=== PATIENT | male | born 1940 | race Caucasian/White ===

== ENCOUNTER → 2018-03-25 | Outpatient (CLI) | payer MEDICARE, BC ==
--- NOTE | 2018-03-25 12:26 | XR ---
EXAMINATION TYPE: PA chest and left rib series (6 views) DATE OF EXAM: 03/25/2018 COMPARISON: 03/13/2015 HISTORY: 78-year-old male for dyspnea, pain in left lower ribs after fall 2 days ago FINDINGS: Heart normal size. Aorta and pulmonary vasculature within normal limits. Strandy atelectasis left gre ater than right lower lungs. No consolidation, pneumothorax, or pleural effusion. There are minimally displaced fractures of the left lateral, anterolateral eighth and ninth ribs. IMPRESSION: Minimally displaced fractures of the lateral, anterolateral left eighth and ninth ribs. Strandy atele ctasis at the lung bases otherwise without acute cardiopulmonary process.
== END | disposition home or self-care (01) ==
LOC: RADXRYALE 11:57
PROVIDERS: ATTEND Nurse Practitioner Family
DX: S22.42XA Multiple fractures of ribs, left side, initial encounter for closed fracture (principal); J98.11 Atelectasis

== ENCOUNTER → 2019-04-08 | Day surgery (SDC) | payer MEDICARE, BC ==
[2019-04-07 08:56] VITALS: BMI 30.1
[~2019-04-08] MED LIST: LACTATED RINGERS 1,000 ML IV SCH; LIDOCAINE 1% 20 ML VIAL (10MG/ML) FOR IV START INTRADERMA PRN; PROPOFOL 10 MG/ML 20 ML VIAL IV ONE
[2019-04-08 13:50] VITALS: TEMP 97.9
--- NOTE | 2019-04-08 14:17 | P.PCN ---
Date of Procedure: 04/08/19 Procedure(s) Performed: Procedure: Total colonoscopy. Preoperative diagnosis: Screening for neoplasia. Postoperative diagnosis: Sigmoid diverticulosis but no evidence of acute diverticulitis strictures polyps or cancer. Preparation: HalfLytely prep. Sedation: Was provided by anesthesia. Brief clinical history: The patient is a 79-year-old male who is scheduled for this evaluation for screening for neoplasia age being his risk factor. His last evaluation was around 10 years ago. He has no bowel complaints of bleeding or anemia. Procedure: With the patient on his left lateral decubitus position and after informed consent, the perianal area was inspected and it did not show any fissures or fistulas. There were no masses felt on digital rectal examination. The Olympus CFH 190L video colonoscope was then inserted in the rectum in the usual fashion and advanced to the cecum. There were several diverticular orifices seen scattered in the sigmoid but I saw no evidence of acute diverticulitis, strictures, polyps or tumors. I retroflexed the endoscope in the rectum then the endoscope was withdrawn. The patient tolerated the procedure well. Plan: The patient was reassured. Discussed dietary measures. He will F/U with you as planned.
[2019-04-08 14:38] VITALS: BP 177/90; PULSE 59; RESP 16
== END | disposition home or self-care (01) ==
LOC: ORWHC2ENDO 12:42
DX: Z12.11 Encounter for screening for malignant neoplasm of colon (principal); K57.30 Diverticulosis of large intestine without perforation or abscess without bleeding; I10 Essential (primary) hypertension; E78.5 Hyperlipidemia, unspecified; Z87.891 Personal history of nicotine dependence; E07.9 Disorder of thyroid, unspecified; Z79.890 Hormone replacement therapy; Z79.899 Other long term (current) drug therapy; M10.9 Gout, unspecified; I25.2 Old myocardial infarction; I25.10 Atherosclerotic heart disease of native coronary artery without angina pectoris
CPT/HCPCS: J2704; G0121; 45378

== ENCOUNTER → 2020-12-19 | Outpatient (CLI) | payer MEDICARE ==
[2020-12-19 14:01] LABS: Appearance,Urine Clear (Clear); Bilirubin,Urine Negative (Negative); Blood,Urine Negative (Negative); Color,Urine Yellow; Glucose,Urine (UA) Negative (Negative); Ketones,Urine Negative (Negative); Leukocyte Esterase,Urine Negative (Negative); Nitrite,Urine Negative (Negative); PH, Urine 5.5 (5.0-8.0); Protein,Urine Negative (Negative); Specific Gravity,Urine 1.017 (1.001-1.035)
[2020-12-19 14:07] LABS: HCT 40.2 % (39.0-53.0); HGB 14.3 gm/dL (13.0-17.5); MCH 32.7 pg (25.0-35.0); MCHC 35.5 g/dL (31.0-37.0); MCV 92.3 fL (80.0-100.0); Mean Platelet Volume 9.3; Platelet Count 202 k/uL (150-450); RBC 4.36 m/uL (4.30-5.90); RDW 13.1 % (11.5-15.5); WBC 7.3 k/uL (3.8-10.6)
[2020-12-19 14:09] LABS: Albumin 4.6 g/dL (3.5-5.0); Calcium 9.3 mg/dL (8.4-10.2); Potassium 4.9 mmol/L (3.5-5.1); Total Bilirubin 1.5 mg/dL (0.2-1.3); Total Protein 7.6 g/dL (6.3-8.2)
[2020-12-19 14:10] LABS: INR 0.9 (<1.2); Partial Thromboplastin Time 22.9 sec (22.0-30.0); Prothrombin Time 9.8 sec (9.0-12.0)
== END | disposition home or self-care (01) ==
LOC: LABPAT 12:35
PROVIDERS: ATTEND Orthopaedic Surgery Sports Medicine
DX: Z01.818 Encounter for other preprocedural examination (principal); Z01.812 Encounter for preprocedural laboratory examination; M17.12 Unilateral primary osteoarthritis, left knee
CPT/HCPCS: 36415; 80053; 81003; 85027; 85610; 85730; 87070

== ENCOUNTER 2021-01-04 07:46 | Inpatient (IN) | payer MEDICARE ==
[2020-12-29 14:41] VITALS: BMI 30.1
[~2021-01-04 07:46] MED LIST changes: +ACETAMINOPHEN TAB 500 MG TAB PO PRN; +GABAPENTIN 300 MG CAP PO PRN; +HYDROmorphone 0.5 MG/0.5 ML SYRINGE IVP PRN; +LIDOCAINE 1% (10MG/ML) FOR IV START INTRADERMA PRN; -LIDOCAINE 1% 20 ML VIAL (10MG/ML) FOR IV START INTRADERMA PRN; +MELOXICAM 7.5 MG TAB PO PRN; +ONDANSETRON 4 MG/2 ML VIAL IVP PRN; -PROPOFOL 10 MG/ML 20 ML VIAL IV ONE; +ROPIVACAINE 246.25 MG, EPINEPHrine 0.5 MG, KETOROLAC 30 MG, cloNIDine HCL/PF 80 MCG, WA... MISCELLANE PRN; +TRANEXAMIC ACID 1,000 MG in SODIUM CHLORIDE 0.9% 100 ML IVPB PRN
[2021-01-04 08:40] LABS: Glucose,Whole Blood 106 mg/dL (75-99)
[2021-01-04] MEDS ORDERED: DEXAMETHASONE SOD PHOSPHATE 4 MG/ML 1 ML VIAL IVP ONE (08:41)
[2021-01-04] MEDS ORDERED: MIDAZOLAM 2 MG/2 ML VIAL IVP ONE (08:57)
[2021-01-04] MEDS ORDERED: fentaNYL (PF) 50 MCG/ML 2 ML AMP IVP ONE (08:57)
[2021-01-04] MEDS ORDERED: HYDROmorphone 0.5 MG/0.5 ML SYRINGE IVP PRN ×2 (09:36)
[2021-01-04] MEDS ORDERED: NALOXONE 0.4 MG/ML 1 ML VIAL IV PRN (09:36)
[2021-01-04] MEDS ORDERED: ONDANSETRON 4 MG/2 ML VIAL IVP PRN (09:36)
[2021-01-04] MEDS ORDERED: bisacodyL 10 MG SUPP RECTAL PRN (09:36)
[2021-01-04] MEDS ORDERED: TEMAZEPAM 15 MG CAP PO PRN (09:36)
[2021-01-04] MEDS ORDERED: NA PHOS,M-B/NA PHOS,DI-BA 133 ML ENEMA RECTAL PRN (09:36)
[2021-01-04] MEDS ORDERED: diazePAM 5 MG TAB PO PRN (09:36)
[2021-01-04] MEDS ORDERED: ACETAMINOPHEN TAB 325 MG TAB PO PRN (09:36)
[2021-01-04] MEDS ORDERED: traMADol 50 MG TAB PO PRN (09:36)
[2021-01-04] MEDS ORDERED: HYDROmorphone 0.2 MG/1 ML SYRINGE IVP PRN (09:36)
[2021-01-04] MEDS ORDERED: MAGNESIUM HYDROXIDE 2,400 MG/10 ML CUP PO PRN (09:36)
[2021-01-04] MEDS ORDERED: PROPOFOL 10 MG/ML 20 ML VIAL IV ONE (09:39)
[2021-01-04] MEDS ORDERED: TRANEXAMIC ACID 1,000 MG/10 ML VIAL ONE (09:39)
[2021-01-04] MEDS ORDERED: fentaNYL (PF) 50 MCG/ML 2 ML AMP ONE (09:39)
[2021-01-04] MEDS ORDERED: MIDAZOLAM 2 MG/2 ML VIAL ONE (09:39)
[2021-01-04] MEDS ORDERED: SODIUM CHLORIDE 0.9% 100 ML BAG ONE (09:39)
[2021-01-04] MEDS ORDERED: HYDROcodone/APAP 7.5-325MG 1 EACH TAB PO PRN (09:41)
[2021-01-04] MEDS ORDERED: ceFAZolin 3,000 MG in SODIUM CHLORIDE 0.9% IRRIGATIO 3,000 ML IRRIGATION ONE (10:16)
[2021-01-04] MEDS ORDERED: ROPIVACAINE 0.2%-NS ON-Q PUMP 1,090 MG, EMPTY PAIN BALL 1 EACH MISCELLANE PRN (10:43)
--- NOTE | 2021-01-04 10:45 | P.ANPRN ---
Procedure Note - Anesthesia - Nerve Block Performed Left Adductor Canal Time Out Performed: Yes (08:57) Date of Procedure: 01/04/21 Procedure Start Time: Procedure Stop Time: :12 Location of Patient: PreOp Indication: Acute Post-Operative Pain, Requested by Surgeon (Dr Briscoe) Sedation Type: Sedate with meaningful contact maintained Preparation: Sterile Prep Position: Supine Catheter: Indwelling Needle Types: Pajunk Needle Gauge: 21 Ultrasound used to visualize needle placement: Yes Ultrasound used to observe medication spread: Yes Injectate: 0.5% Ropivacaine (see comment for volume) (20cc) Blood Aspirated: No Pain Paresthesia on Injection Noted: No Resistance on Injection: Normal Image Stored and Saved: Yes Events: Uneventful and Well Tolerated
--- NOTE | 2021-01-04 12:24 | XR ---
EXAMINATION TYPE: XR knee limited LT DATE OF EXAM: 01/04/2021 COMPARISON: NONE TECHNIQUE: Two views submitted HISTORY: Post op FINDINGS: There is a prosthetic knee in near anatomic alignment. There is soft tissue edema and emphysema. IMPRESSION: 1. Postoperative change. Appears in near-anatomic alignment
[2021-01-04 12:35] LABS: Glucose,Whole Blood 127 mg/dL (75-99)
[2021-01-04] MEDS: LACTATED RINGERS 1,000 ML IV SCH ×2 (13:19→20:52)
--- NOTE | 2021-01-04 17:44 | OP ---
OPERATIVE REPORT DATE OF PROCEDURE: 01/04/2021 SURGEON: Dk Briscoe MD CLERICAL METHODS ANALYST: Jayy Macias PA-C PREOPERATIVE DIAGNOSIS: Left knee osteoarthrosis. POSTOPERATIVE DIAGNOSIS: Left knee osteoarthrosis. OPERATION: Left total knee arthroplasty. ANESTHESIA: Spinal with sedation. ESTIMATED BLOOD LOSS: 100 mL. TOURNIQUET TIME: Tourniquet time was 54 minutes at 250 mmHg. COMPLICATIONS: None apparent. DRAINS: None. DISPOSITION: Post-Anesthesia Care Unit. INDICATIONS: Tejinder is a 80-year-old male with a longstanding history of left knee pain. History and physical examination are consistent with advanced left knee osteoarthrosis. He has been through significant nonoperative management up to this point. Further treatment options were discussed and he has decided to go forward with left total knee arthroplasty. The risks of the procedure were discussed with him in detail. These risks include but are not limited to risk of infection, nerve damage, bleeding, pain, and a small risk of deep vein thrombosis which could lead to fatal pulmonary embolism. There is also a risk of loosening of the implant which could require revision operation. The patient understands these risks. All of his questions were answered to his satisfaction. Appropriate informed consent was obtained. DESCRIPTION OF THE PROCEDURE: The patient was identified in the preoperative holding area. Surgical site was marked by both the patient and myself. He was given 2 grams of Ancef IV for prophylactic purposes. He was then transported to the operative suite, where he was placed supine on the operating room table. Spinal anesthetic was then administered and dosed per the anesthesia department without apparent complication. Examination under anesthesia was then performed. The patient was 5 to 7 degrees shy of full extension. He had 95 degrees of flexion, and the medial collateral ligament, lateral collateral ligament and posterior cruciate ligaments were stable. Tourniquet was then placed high on the left upper thigh, well padded in preparation for surgery. The patient's left lower extremity was then prepped and draped in the usual sterile fashion. Standard surgical pause was undertaken to ensure that we were operating on the correct site and that appropriate preoperative antibiotics had been given. All staff in the room were in agreement and we proceeded. The outlines of the patella were marked with a surgical pen. A planned 12 cm vertical incision centered over the patella was marked with a surgical pen. The leg was then exsanguinated with an Esmarch dressing. The knee was then flexed and the tourniquet was inflated to 250 mmHg. The total tourniquet time for the procedure was 54 minutes. Incision was then made with a 10-blade scalpel. Dissection was carried down sharply to the overlying fascia. Great care was taken to minimize the skin flaps. The knee was then exposed using a standard medial parapatellar approach. A small cuff of quadriceps tendon was then left for suturing. He was in quite a bit of varus preoperatively. A standard medial release was then made. The superficial medial collateral ligament was dissected off of the bone around to the posterior aspect of the proximal tibia. The medial meniscus was then excised as well. The lateral meniscus was also released anteriorly. The leg was then externally rotated. The patella was everted. The knee was flexed. Retractors were then placed to protect the collateral ligaments. I then proceeded to remove the infrapatellar fat pad. This was excised sharply tangentially with the fibers of the patellar tendon. I then proceeded to remove the peripheral osteophytes. This was done with a rongeur. I then proceeded with distal femoral resection. He did have a flexion contracture. A planned 11 mm resection was then done. The femoral canal was then entered in the midline of the femur approximately 10 mm anterior to the origin of the posterior cruciate ligament. The uriah was then advanced down the center of the femur and placed intramedullary. Based on the preoperative radiographs, the angle between the anatomic and mechanical axis of the femur was approximately 4 to 5 degrees. The valgus angle of the distal femoral cutting guide was then set at 4 degrees for the left knee. The distal femoral cutting guide was then advanced over the intramedullary uriah. This was seated firmly against the femur. I then, as mentioned, planned to take 11 mm off the distal femur. The cutting block was then secured onto the femur with pins. The jig was then removed and the distal femoral cut was made through the slot of the block. The pins were then removed. The distal femoral cutting block was removed. The accuracy of the distal femoral cuts was checked with 2 flat bars. I then proceeded with femoral sizing. Posterior referencing sizing guide was held firmly against the resected distal surface of the femur. The posterior condyles were resting on the posterior plane of the guide. The sizing guide was then placed on the anterior femur. The size was measured as a size 10. I then assessed for femoral rotation. The plan was for 3 degrees of external rotation. Three degrees of external rotation was placed onto the jig. These holes were then marked. I then confirmed the rotation by 3 separate methods. This was done using epicondylar axis as well as Whitesides line and posterior referencing. It was deemed that the external rotation was proper. I then went forward with placing the femoral cutting block. This was placed over the previously placed pin holes. The Weston wing was then placed onto the anterior slots to ensure that we would not notch the anterior femur with the anterior femoral cut. I then proceeded with the anterior femoral cut. This was flush with the anterior cortex of the femur. The posterior cuts were then made followed by the anterior chamfer cut and then the posterior chamfer cut. The cutting block was then removed. Throughout the resection, the collateral ligaments were protected with retractors. I then placed a trial size 10 femur. It fit very nicely medial to lateral and fit flush with the distal end of the femur. The drill holes were then made. I then proceeded with the tibial cut. I planned for a cruciate-retaining knee. The guide was placed and set for varus, valgus and for slope. The height was set for an approximate 2 mm resection from the medial tibial plateau, which was the lower side. I was happy with the alignment and the amount of resection. The cutting block was then pinned to the proximal tibia. The alignment uriah was removed and proximal tibia was resected with a reciprocating saw. Again this was done with retractors protecting the collateral ligaments as well as the posterior cruciate ligament. I then proceeded to evaluate the flexion and extension gaps. A 10 mm block was then placed. The flexion and extension gaps were equal. I then proceeded with resection of the posterior osteophytes. He had fairly extensive posterior osteophytes. This was done using a curved osteotome. This resected the posterior osteophytes, and posterior capsule stripping was done off the posterior aspect of the femur at this time. The osteophytes were then removed. I then proceeded with resection of the patella. The thickness of the patella was measured using the caliper. The thickness was 26 mm. The thickness of the anticipated patellar dome was taken into account. Resection was then performed and confirmed to be equal in 4 quadrants using a caliper. Approximately 14 mm of bone remained after resection. A 35 x 9 standard patellar trial was then placed. The holes were drilled and the trial was then placed. I then proceeded with sizing the tibial plate. A size G tibial plate fit very nicely. I then placed the trial femur, the tibial tray and the patellar button. A 10 mm trial tibial insert was also placed. The components fit very nicely. He had full extension and flexion. The extension and flexion gaps were equal and stable to both varus and valgus stress. The patella tracked appropriately. Tibial tray rotation was then marked with a Bovie. This was externally rotated properly. I then proceeded with tibial preparation. I first drilled the femoral holes and removed the femoral component. The tibial tray was then set for proper external rotation as well as mediolateral placement onto the tibia. It was then pinned into place. I then proceeded with punching the keel. I then decided to proceed with cementing of all of our components. The knee was thoroughly irrigated with sterile saline solution via pulse lavage. The lateral geniculate artery was identified and cauterized. All blood was removed from the bone of the tibia, femur and patella with pulse lavage. I then proceeded with cementing. Two packs of antibiotic bone cement were prepared on the back table by the surgical asst. I then proceeded with cementing the tibia first. The cement was impacted into the keel as well as deeply seated into the bone. A second coat of cement was then placed. The tibia was then impacted into place. Excess cement was removed with Pullman's and jokers. I then proceeded with cementing of the femoral component. The femoral component was also cemented using sterile technique. Excess cement was removed. A 10 mm trial insert was then placed into the knee. It was brought into full extension with a constant axial load placed until the cement had hardened. The patellar component was then cemented. This was held firmly with a compressive device until the cement had dried. When the cement had dried, the knee was taken out of extension. All excess cement was removed from around the prosthesis. I then trialed the knee with a 10 mm insert. The flexion and extension gaps were appropriate. The knee was stable. It came into full extension. I decided to go forward with a 10 mm cross-linked, cruciate-retaining tibial insert. Polyethylene was then placed on the tray and locked into place. The knee was then reduced. The knee was again further irrigated with sterile saline solution with antibiotic added. The tourniquet was then deflated. The total tourniquet time for the procedure was 54 minutes at 250 mmHg. Final components were Yvonne Persona size 10, cruciate-retaining femoral component size G tibial tray, a 10 mm medial-congruent, cruciate-retaining polyethylene insert, and a 35 x 9 patella. I then proceeded with closure. Again the knee was thoroughly irrigated. The quadriceps tendon and the medial retinacular were reapproximated with a #2 Ethibond suture. The extensor mechanism was then closed with a running #2 Quill suture. Subcutaneous tissues were closed with 2-0 Vicryl interrupted suture. The skin was closed with running 3-0 Quill suture. Dermabond was applied to the incision. Sterile compressive dressings were then applied. All sponge and needle counts were deemed correct prior to closure. The patient tolerated the procedure without apparent complication. He was transferred to the recovery room in stable condition. MMODL / IJN: [id number] /
[2021-01-04] MEDS: ASPIRIN 81 MG PO SCH (20:40)
[2021-01-04] MEDS: SENNOSIDES-DOCUSATE SODIUM 1 EACH TAB PO SCH (20:40)
[2021-01-04] MEDS: amLODIPine 5 MG TAB PO SCH (21:21)
[2021-01-05] MEDS: HYDROcodone/APAP 7.5-325MG 1 EACH TAB PO PRN ×2 (02:45→08:32)
[2021-01-05] MEDS: LACTATED RINGERS 1,000 ML IV SCH ×3 (05:24→23:30)
--- NOTE | 2021-01-05 07:06 | P.PN ---
Progress Note - Text The patient is status post left adductor canal catheter placement. The catheter was placed for postoperative pain control, status post total left arthroplasty. Ropivacaine 0.2% is infusing at 8 mLs per hour. The patient has no complaints of left lower extremity numbness or weakness. Patient's VAS score is 1-2-10. Assessment: Patient's adductor canal catheter is in place and working appropriately. Plan: continue infusion and adjust it as needed.
[2021-01-05 07:17] LABS: Glucose,Whole Blood 135 mg/dL (75-99)
[2021-01-05] MEDS: amLODIPine 5 MG TAB PO SCH (08:32)
[2021-01-05] MEDS: MULTIVITAMINS, THERA 1 EACH TAB PO SCH (08:32)
[2021-01-05] MEDS: ASPIRIN 81 MG PO SCH ×2 (08:32→20:06)
[2021-01-05 09:27] LABS: Basophils # (A) 0.02 X 10*3/uL (0.00-0.10); Basophils % (A) 0.2 %; Eosinophils # (A) 0.03 X 10*3/uL (0.04-0.35); Eosinophils % (A) 0.3 %; HCT 30.2 % (39.6-50.0); HGB 10.7 g/dL (13.0-17.0); Lymphocytes % (A) 9.5 %; MCH 32.2 pg (27.0-32.0); MCHC 35.4 g/dL (32.0-37.0); Mean Platelet Volume 11.2 fL (9.5-12.2); Monocytes # (A) 1.34 X 10*3/uL (0.20-1.00); Monocytes % (A) 12.7 %; Neutrophils # (A) 8.11 X 10*3/uL (1.80-7.70); Neutrophils % (A) 76.8 %; Platelet Count 166 X 10*3/uL (140-440); RBC 3.32 X 10*6/uL (4.40-5.60); RDW 11.9 % (11.5-14.5); WBC 10.55 X 10*3/uL (4.50-10.00)
[2021-01-05] MEDS ORDERED: metFORMIN 500 MG TAB PO SCH (09:30)
[2021-01-05 09:48] LABS: African American GFR (CKD) 55 (>60 ml/min/1.73 sqM); Anion Gap 9 mmol/L; Blood Urea Nitrogen 29 mg/dL (9-20); Calcium 8.6 mg/dL (8.4-10.2); Carbon Dioxide 22 mmol/L (22-30); Chloride 102 mmol/L (98-107); Glucose 122 mg/dL (74-99); Non-African American GFR(CKD) 47 (>60 ml/min/1.73 sqM); Potassium 4.4 mmol/L (3.5-5.1); Sodium 133 mmol/L (137-145)
[2021-01-05] MEDS: LEVOTHYROXINE 75 MCG TAB PO SCH (10:13)
[2021-01-05] MEDS: THIAMINE 100 MG TAB PO SCH (10:15)
[2021-01-05] MEDS: ISOSORBIDE MONONITRATE ER 30 MG TAB.ER.24H PO SCH (10:15)
[2021-01-05] MEDS: ZINC SULFATE 220 MG CAP PO SCH (10:15)
[2021-01-05] MEDS: METOPROLOL TARTRATE 25 MG TAB PO SCH ×4 (10:15→21:25)
[2021-01-05] MEDS: ASCORBIC ACID 500 MG TAB PO SCH (10:15)
[2021-01-05] MEDS: CHOLECALCIFEROL 25 MCG (1000 IU) TABLET PO SCH (10:15)
[2021-01-05] MEDS: ATORVASTATIN 40 MG TAB PO SCH (10:15)
[2021-01-05 11:01] LABS: Hemoglobin A1C 5.5 % (4.0-6.0)
[2021-01-05 12:48] LABS: Glucose,Whole Blood 186 mg/dL (75-99)
--- NOTE | 2021-01-05 13:29 | CT ---
EXAMINATION TYPE: CT brain wo con for TPA DATE OF EXAM: 01/05/2021 COMPARISON: None HISTORY: Neuro deficit CT DLP: 1166.[address] of the brain was performed. The ventricles, basal cisterns and sulci overlying the cerebral convexities demonstrate mild enlargem ent. There is no evidence for intracranial hemorrhage or sulcal effacement. There is decreased attenuation about the periventricular white matter and deep white matter of both c erebral hemispheres, compatible with chronic small vessel ischemia. Differential diagnosis does inclu de demyelination. No mass effects are seen.No midline shift. Osseous calvarium is intact. If symptoms persist consider MRI. IMPRESSION: 1. Age related atrophic and chronic small vessel ischemic change without acute intracranial process s een at this time.
[2021-01-05] MEDS: INSULIN ASPART (NovoLOG) 100 UNIT/ML VIAL SQ SCH ×3 (14:42→21:25)
--- NOTE | 2021-01-05 14:46 | P.DS ---
Providers Expected date of discharge: 01/05/21 Attending physician: Dk Briscoe Consults: 01/04/21 09:48 Consult Physician Routine Consulting Provider: Parag Szymanski Consult Reason/Comments: post op medical management Do you want consulting provider notified?: Yes Primary care physician: Isabella Cerda - Discharge Diagnosis(es) (1) Status post total left knee replacement Patient was admitted to the OR on 01/04/21 to undergo a left total knee arthroplasty. He had failed conservative measures as an outpatient and desired to proceed with elective surgery after given informed consent. He underwent the above procedure which he tolerated well without complication. Postoperative hospital course has remained without complication. On day of discharge she is afebrile, vital signs stable, labs within acceptable ranges, tolerating by mouth meds and diet, voiding without difficulty, positive flatus, denies abdominal pain or calf pain, pain is controlled on oral pain medication and has no new c omplaints. Wound is benign, neurovascular status is intact, calf is soft and nontender, abdomen soft and nontender. Review of systems is negative for numbness, tingling, fever, chills, chest pain, shortness of breath, nausea, vomiting, dizziness, headaches, slurred speech or other. Current Visit: Yes Status: Acute Procedures: Left TKA Patient Condition at Discharge: Good Plan - Discharge Summary Discharge Rx Participant: Yes New Discharge Prescriptions: New Aspirin [Adult Low Dose Aspirin EC] 81 mg PO BID #60 tablet. Docusate [Colace] 100 mg PO BID #60 capsule HYDROcodone/APAP 7.5-325MG [[employer] 7.5-325] 1 - 2 each PO Q6HR PRN #42 tab PRN Reason: Pain No Action Levothyroxine Sodium [Synthroid] 75 mcg PO DAILY Metoprolol Tartrate 25 mg PO QID amLODIPine [Norvasc] 5 mg PO DAILY Isosorbide Mononitrate [Isosorbide Mononitrate ER] 30 mg PO DAILY Cholecalciferol [Vitamin D3 (25 Mcg = 1000 Iu)] 25 mcg PO DAILY Ascorbic Acid [Vitamin C] 500 mg PO DAILY metFORMIN HCL ER [Glucophage Xr] 500 mg PO DAILY Atorvastatin [Lipitor] 40 mg PO DAILY Zinc 50 mg PO DAILY Thiamine [Vitamin B-1] 50 mg PO DAILY Garlic 1 each PO DAILY Febuxostat [Uloric] 40 mg PO DIRECTED PRN PRN Reason: gout Discharge Medication List Levothyroxine Sodium [Synthroid] 75 mcg PO DAILY 03/15/15 [History] Metoprolol Tartrate 25 mg PO QID 03/15/15 [History] Ascorbic Acid [Vitamin C] 500 mg PO DAILY 12/29/20 [History] Atorvastatin [Lipitor] 40 mg PO DAILY 12/29/20 [History] Cholecalciferol [Vitamin D3 (25 Mcg = 1000 Iu)] 25 mcg PO DAILY 12/29/20 [History] Febuxostat [Uloric] 40 mg PO DIRECTED PRN 12/29/20 [History] Garlic 1 each PO DAILY 12/29/20 [History] Isosorbide Mononitrate [Isosorbide Mononitrate ER] 30 mg PO DAILY 12/29/20 [ History] Thiamine [Vitamin B-1] 50 mg PO DAILY 12/29/20 [History] Zinc 50 mg PO DAILY 12/29/20 [History] amLODIPine [Norvasc] 5 mg PO DAILY 12/29/20 [History] metFORMIN HCL ER [Glucophage Xr] 500 mg PO DAILY 12/29/20 [History] Aspirin [Adult Low Dose Aspirin EC] 81 mg PO BID #60 tablet. 01/05/21 [Rx] Docusate [Colace] 100 mg PO BID #60 capsule 01/05/21 [Rx] HYDROcodone/APAP 7.5-325MG [[employer] 7.5-325] 1 - 2 each PO Q6HR PRN #42 tab 01/05/21 [Rx] Follow up Appointment(s)/Referral(s): Isabella Cerda DO [Primary Care Provider] - 1 Week (Please call office for your appointment. ) [facility], [NON-STAFF] - Dk Briscoe MD [STAFF PHYSICIAN] - 01/15/21 1:15 pm Activity/Diet/Wound Care/Special Instructions: Weightbear as tolerated keep wound clean and dry take meds as directed F/u with Dr. Briscoe in office Discharge Disposition: HOME WITH HOME HEALTH SERVICES
[2021-01-05 14:51] LABS: Basophils % (A) 0 %; Eosinophils # (A) 0.1 k/uL (0-0.7); Eosinophils % (A) 1 %; HGB 11.5 gm/dL (13.0-17.5); Lymphocytes % (A) 12 %; MCH 33.3 pg (25.0-35.0); MCV 92.4 fL (80.0-100.0); Mean Platelet Volume 7.9; Monocytes # (A) 0.9 k/uL (0-1.0); Monocytes % (A) 10 %; Neutrophils # (A) 6.2 k/uL (1.3-7.7); Neutrophils % (A) 74 %; Platelet Count 185 k/uL (150-450); RBC 3.46 m/uL (4.30-5.90); RDW 12.2 % (11.5-15.5); WBC 8.4 k/uL (3.8-10.6)
[2021-01-05 14:59] LABS: Partial Thromboplastin Time 22.2 sec (22.0-30.0); Prothrombin Time 10.5 sec (9.0-12.0)
[2021-01-05 15:06] LABS: Glucose 144 mg/dL (74-99)
[2021-01-05 15:07] LABS: ALT 16 U/L (4-49); AST 21 U/L (17-59); African American GFR (CKD) 48 (>60 ml/min/1.73 sqM); Albumin 3.6 g/dL (3.5-5.0); Albumin/Globulin Ratio 1.4; Alkaline Phosphatase 49 U/L (38-126); Anion Gap 6 mmol/L; Blood Urea Nitrogen 34 mg/dL (9-20); Calcium 8.7 mg/dL (8.4-10.2); Carbon Dioxide 25 mmol/L (22-30); Chloride 100 mmol/L (98-107); Globulin 2.5 g/dL; Non-African American GFR(CKD) 42 (>60 ml/min/1.73 sqM); Sodium 131 mmol/L (137-145); Total Bilirubin 0.8 mg/dL (0.2-1.3); Total Protein 6.1 g/dL (6.3-8.2)
--- NOTE | 2021-01-05 15:38 | P.CONS ---
History of Present Illness - Reason for Consult Possible stroke - History of Present Illness Patient is a pleasant 82-year-old male was admitted for left knee arthroplasty sepsis underwent surgery was clinically doing well is about to be discharged although patient became less responsive and aspirin the nursing staff may have had a facial droop because of which course stroke was called. Patient underwent computed tomography scan of the head which was negative. Patient pupils were also constricted patient last received the pain medication is opiate was around the 8 AM and disease event happened around 3 and half hours later. Patient was apparently diaphoretic as well. Neurology was consulted. Patient's blood pressure was low before the event after which it went the up quite a bit. When evaluated the patient patient doesn't have any neuro deficits. Review of Systems REVIEW OF SYSTEMS: CONSTITUTIONAL: No fever, no malaise, no fatigue. HEENT: No recent visual problems or hearing problems. Denied any sore throat. CARDIOVASCULAR: No chest pain, orthopnea, PND, no palpitations, no syncope. PULMONARY: No shortness of breath, no cough, no hemoptysis. GASTROINTESTINAL: No diarrhea, no nausea, no vomiting, no abdominal pain. NEUROLOGICAL: Mentioned in HPI HEMATOLOGICAL: Denies any bleeding or petechiae. GENITOURINARY: Denies any burning micturition, frequency, or urgency. MUSCULOSKELETAL/RHEUMATOLOGICAL: Denies any joint pain, swelling, or any muscle pain. ENDOCRINE: Denies any polyuria or polydipsia. The rest of the 14-point review of systems is negative. Past Medical History Past Medical History: Diabetes Mellitus, Hyperlipidemia, Hypertension, Myocardial Infarction ([place]), Osteoarthritis (OA), Thyroid Disorder Additional Past Medical History / Comment(s): GOUT, heart murmur Last Myocardial Infarction Date:: UNKNOWN-SILENT History of Any Multi-Drug Resistant Organisms: None Reported Past Surgical History: Hernia Repair, Joint Replacement Additional Past Surgical History / Comment(s): COLONOSCOPY, cataracts removed, left TKR Past Anesthesia/Blood Transfusion Reactions: No Reported Reaction Past Psychological History: No Psychological Hx Reported Additional Psychological History / Comment(s): Lives at home with . Retired. Drives. No pets in the home. Has some donkeys that grandson will take care of during recovery. Only has stairs to second level which they rarely use. Smoking Status: Former smoker Past Alcohol Use History: Daily Additional Past Alcohol Use History / Comment(s): QUIT SMOKING 1969. HAS 1 kiersten ktail DAILY Past Drug Use History: None Reported - Past Family History Mother Family Medical History: No Reported History Daughter(s) Family Medical History: Cancer Additional Family Medical History / Comment(s): colon cancer Medications and Allergies Home Medications Medication Instructions Recorded Confirmed Type Levothyroxine Sodium [Synthroid] 75 mcg PO DAILY 03/15/15 01/04/21 History Metoprolol Tartrate 25 mg PO QID 03/15/15 01/04/21 History Ascorbic Acid [Vitamin C] 500 mg PO DAILY 12/29/20 01/04/21 History Atorvastatin [Lipitor] 40 mg PO DAILY 12/29/20 01/04/21 History Cholecalciferol [Vitamin D3 (25 25 mcg PO DAILY 12/29/20 01/04/21 History Mcg = 1000 Iu)] Febuxostat [Uloric] 40 mg PO DIRECTED PRN 12/29/20 01/04/21 History Garlic 1 each PO DAILY 12/29/20 01/04/21 History Isosorbide Mononitrate [Isosorbide 30 mg PO DAILY 12/29/20 01/04/21 History Mononitrate ER] Thiamine [Vitamin B-1] 50 mg PO DAILY 12/29/20 01/04/21 History Zinc 50 mg PO DAILY 12/29/20 01/04/21 History amLODIPine [Norvasc] 5 mg PO DAILY 12/29/20 01/04/21 History metFORMIN HCL ER [Glucophage Xr] 500 mg PO DAILY 12/29/20 01/04/21 History Aspirin [Adult Low Dose Aspirin EC] 81 mg PO BID #60 tablet. 01/05/21 Rx Docusate [Colace] 100 mg PO BID #60 capsule 01/05/21 Rx HYDROcodone/APAP 7.5-325MG [[place] 1 - 2 each PO Q6HR PRN #42 tab 01/05/21 Rx 7.5-325] Allergies Allergy/AdvReac Type Severity Reaction Status Date / Time No Known Allergies Allergy Verified 01/04/21 08:20 Physical Exam Vitals: Vital Signs Temp Pulse Resp BP Pulse Ox 01/05/21 13:59 97.3 F L 59 L 18 163/65 97 01/05/21 13:25 57 L 166/73 01/05/21 13:01 57 L 150/61 02/26/21 12:50 106/67 01/05/21 08:32 17 01/05/21 07:53 98.1 F 80 17 206/81 98 01/05/21 02:00 97.6 F 67 18 190/91 98 01/04/21 19:25 97.6 F 60 18 189/79 97 Intake and Output 01/05/21 01/05/21 01/05/21 06:59 14:59 22:59 Other: Voiding Method Toilet # Voids 2 PHYSICAL EXAMINATION: GENERAL: The patient is alert and oriented x3, not in any acute distress. Well developed, well nourished. HEENT: Pupils are round and equally reacting to light. EOMI. No scleral icterus. No conjunctival pallor. Normocephalic, atraumatic. No pharyngeal erythema. No thyromegaly. CARDIOVASCULAR: S1 and S2 present. No murmurs, rubs, or gallops. PULMONARY: Chest is clear to auscultation, no wheezing or crackles. ABDOMEN: Soft, nontender, nondistended, normoactive bowel sounds. No palpable organomegaly. MUSCULOSKELETAL: No joint swelling or deformity. EXTREMITIES: No cyanosis, clubbing, or pedal edema. NEUROLOGICAL: Gross neurological examination did not reveal any focal deficits. SKIN: No rashes. Results CBC & Chem 7: 01/05/21 14:16 01/05/21 05:38 Labs: Abnormal Lab Results - Last 24 Hours (Table) 01/05/21 01/05/21 01/05/21 Range/Units 05:38 05:38 07:15 WBC 10.55 H (4.50-10.00) X 10*3/uL RBC 3.32 L (4.40-5.60) X 10*6/uL Hgb 10.7 L (13.0-17.0) g/dL Hct 30.2 L (39.6-50.0) % MCH 32.2 H (27.0-32.0) pg Immature Gran # 0.05 H (0.00-0.04) X 10*3/uL Neutrophils # 8.11 H (1.80-7.70) X 10*3/uL Monocytes # 1.34 H (0.20-1.00) X 10*3/uL Eosinophils # 0.03 L (0.04-0.35) X 10*3/uL Sodium 133 L (137-145) mmol/L BUN 29 H (9-20) mg/dL Creatinine 1.42 H (0.66-1.25) mg/dL Glucose 122 H (74-99) mg/dL POC Glucose (mg/dL) 135 H (75-99) mg/dL 01/05/21 01/05/21 Range/Units 12:47 14:16 WBC (4.50-10.00) X 10*3/uL RBC 3.46 L (4.40-5.60) X 10*6/uL Hgb 11.5 L (13.0-17.0) g/dL Hct 32.0 L (39.6-50.0) % MCH (27.0-32.0) pg Immature Gran # (0.00-0.04) X 10*3/uL Neutrophils # (1.80-7.70) X 10*3/uL Monocytes # (0.20-1.00) X 10*3/uL Eosinophils # (0.04-0.35) X 10*3/uL Sodium (137-145) mmol/L BUN (9-20) mg/dL Creatinine (0.66-1.25) mg/dL Glucose (74-99) mg/dL POC Glucose (mg/dL) 186 H (75-99) mg/dL Assessment and Plan Plan: -An episode of decreased responsiveness and possible facial droop on the left side: CT of the head did not show any significant abnormality neurology will evaluate the patient. Either patient had a TIA or his episode is related to opiate analgesia 6 as patient had significant pupillary constriction during the event. 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
[2021-01-05 15:40] LABS: Potassium 4.7 mmol/L (3.5-5.1)
--- NOTE | 2021-01-05 17:54 | MR ---
EXAMINATION TYPE: MR brain wo con DATE OF EXAM: 01/05/2021 COMPARISON: CT brain earlier today. HISTORY: Code stroke follow up. Acute onset neurologic defect earlier today. Left facial droop and di fficulty speaking. TECHNIQUE: Multiplanar, multisequence imaging of the brain and brainstem is performed without IV cont rast. FINDINGS: Diffusion weighted images demonstrate no evidence of a recent infarct or other diffusion abnormality. There is diffuse ventricular and sulcal prominence redemonstrated. Degree of ventricular dilatation s lightly out of proportion to degree of sulcal effacement and a underlying normal pressure hydrocephal us is not excluded. Areas of T2 hyperintensity throughout the white matter greatest periventricular l evels are noted. Fourth ventricle remains prominent. Midline structures demonstrate normal morphology. The craniocervical junction appears within normal limits. Normal vascular flow voids are present. The visualized sinuses are clear and the globes are i ntact. Nasal septum remains deviated to right of midline. IMPRESSION: No MRI evidence for a recent infarct. [id number] diffuse cerebral atrophy and moder ate to advanced chronic small vessel ischemic change redemonstrated. Cannot exclude underlying normal pressure hydrocephalus. Correlation with old outside CT or MRI would be beneficial.
[2021-01-05 18:01] LABS: Glucose,Whole Blood 146 mg/dL (75-99)
--- NOTE | 2021-01-05 19:41 | P.CNNES ---
History of Present Illness Consult date: 01/05/21 Requesting physician: Everardo Doran Reason for Consult: Stroke code History of Present Illness: Patient is a 80-year-old left-handed male who came yesterday for total left knee arthroplasty. Patient was apparently fine at 12:30 PM today. At 1 PM was found by process maintenance technician sitting in the chair aphasic. Patient was not verbally responding to her. Patient had pinpoint pupils, he was diaphoretic and verbally not responding. Patient had told present on the left side of the mouth. Patient's blood pressure was 150/61, stroke code was initiated. Patient was sent for computed tomography scan of the head. Patient was already getting better while he was being transferred to the computed tomography scan. It is u ncertain how long symptoms lasted. Patient's symptom at present seems to be completely resolved. Patient was not a candidate for TPA. Patient was on opiates for pain control, which was felt to be the cause of this episode. CT head showed age-related atrophic and chronic small vessel ischemic changes without acute intracranial process. Blood tests from this morning showed WBC 10.55, hemoglobin 10.7, platelets 166. PT/PTT normal. Sodium 133 potassium 4.4, BUN 29, creatinine 1.42. Hemoglobin A1c 5.5, hepatic panel normal. Troponin negative. Patient's last cholesterol was 157 on 05/22/2020, with LDL 87, HDL 49 and triglycerides 105. TSH is normal. Patient is currently on tramadol 50 g every 6 hours, temazepam 50 mg at bedtime, metoprolol, levothyroxine, Dilaudid 0.5 mg IV push every 3 hours Lipitor 40 mg, aspirin 81 mg. Patient states that he takes 1-2 drinks of whiskey every night for last several years. He has not had any alcohol for the last 3-4 nights. Review of Systems Complains of left knee pain from surgery otherwise completely unremarkable. Denies any problem with double vision, loss of vision, sore throat, dysphagia. Patient states that he did not sleep well for last 3 nights, which may be the cause of this episode. Past Medical History Past Medical History: Diabetes Mellitus, Hyperlipidemia, Hypertension, Myocardial Infarction ([place]), Osteoarthritis (OA), Thyroid Disorder Additional Past Medical History / Comment(s): GOUT, heart murmur Last Myocardial Infarction Date:: UNKNOWN-SILENT History of Any Multi-Drug Resistant Organisms: None Reported Past Surgical History: Hernia Repair, Joint Replacement Additional Past Surgical History / Comment(s): COLONOSCOPY, cataracts removed, left TKR Past Anesthesia/Blood Transfusion Reactions: No Reported Reaction Past Psychological History: No Psychological Hx Reported Additional Psychological History / Comment(s): Lives at home with . Retired. Drives. No pets in the home. Has some donkeys that grandson will take care of during recovery. Only has stairs to second level which they rarely use. Smoking Status: Former smoker Past Alcohol Use History: Daily Additional Past Alcohol Use History / Comment(s): QUIT SMOKING 1969. HAS 1 cocktail DAILY Past Drug Use History: None Reported - Past Family History Mother Family Medical History: No Reported History Daughter(s) Family Medical History: Cancer Additional Family Medical History / Comment(s): colon cancer Medications and Allergies Home Medications Medication Instructions Recorded Confirmed Type Levothyroxine Sodium [Synthroid] 75 mcg PO DAILY 03/15/15 01/04/21 History Metoprolol Tartrate 25 mg PO QID 03/15/15 01/04/21 History Ascorbic Acid [Vitamin C] 500 mg PO DAILY 12/29/20 01/04/21 History Atorvastatin [Lipitor] 40 mg PO DAILY 12/29/20 01/04/21 History Cholecalciferol [Vitamin D3 (25 25 mcg PO DAILY 12/29/20 01/04/21 History Mcg = 1000 Iu)] Febuxostat [Uloric] 40 mg PO DIRECTED PRN 12/29/20 01/04/21 History Garlic 1 each PO DAILY 12/29/20 01/04/21 History Isosorbide Mononitrate [Isosorbide 30 mg PO DAILY 12/29/20 01/04/21 History Mononitrate ER] Thiamine [Vitamin B-1] 50 mg PO DAILY 12/29/20 01/04/21 History Zinc 50 mg PO DAILY 12/29/20 01/04/21 History amLODIPine [Norvasc] 5 mg PO DAILY 12/29/20 01/04/21 History metFORMIN HCL ER [Glucophage Xr] 500 mg PO DAILY 12/29/20 01/04/21 History Aspirin [Adult Low Dose Aspirin EC] 81 mg PO BID #60 tablet. 01/05/21 Rx Docusate [Colace] 100 mg PO BID #60 capsule 01/05/21 Rx HYDROcodone/APAP 7.5-325MG [[place] 1 - 2 each PO Q6HR PRN #42 tab 01/05/21 Rx 7.5-325] Allergies Allergy/AdvReac Type Severity Reaction Status Date / Time No Known Allergies Allergy Verified 01/04/21 08:20 Physical Examination - Vital Signs Vital Signs: Vital Signs Temp Pulse Resp BP Pulse Ox 01/05/21 13:59 97.3 F L 59 L 18 163/65 97 01/05/21 13:25 57 L 166/73 01/05/21 13:01 57 L 150/61 01/05/21 12:50 106/67 01/05/21 08:32 17 01/05/21 07:53 98.1 F 80 17 206/81 98 01/05/21 02:00 97.6 F 67 18 190/91 98 01/04/21 19:25 97.6 F 60 18 189/79 97 Intake and Output 01/05/21 01/05/21 01/05/21 06:59 14:59 22:59 Other: Voiding Method Toilet # Voids 2 On examination patient is an elderly male, in no acute distress. Patient is alert and awake oriented to time place and person. Speech and language functions are normal. Attention, concentration and fund of knowledge is adequate. On cranial nerve exam agent pupils are round and reactive to light, visual bishop are full, extraocular muscles are intact with no nystagmus. Face is symmetric, tongue protrudes to the midline. Palatal elevation and sensation normal, hearing and shoulder shrug normal, facial sensation is normal. On muscle strength testing there is no pronator drift and the strength is completely normal in both arms as well as a right lower extremity. Patient's left leg was not checked because of recent surgery. There is no ataxia for [id number] testing, tone and bulk of muscles normal. Sensory to touch is equal with no neglect. Reflexes are diminished and plantars are downgoing. Gait deferred. On general examination, there is mild carotid bruit on the left. S1 and S2 audible. Chest is clear. Peripheral pulses present. No edema. Results - Laboratory Findings CBC and BMP: 01/05/21 14:16 01/05/21 14:16 Abnormal Lab Findings: Abnormal Labs 01/04/21 01/04/2121 08:36 12:33 05:38 WBC 10.55 H RBC 3.32 L Hgb 10.7 L Hct 30.2 L MCH 32.2 H Immature Gran # 0.05 H Neutrophils # 8.11 H Monocytes # 1.34 H Eosinophils # 0.03 L Sodium BUN Creatinine Glucose POC Glucose (mg/dL) 106 H 127 H Total Protein 01/05/21 01/05/21 01/05/21 05:38 07:15 12:47 WBC RBC Hgb Hct MCH Immature Gran # Neutrophils # Monocytes # Eosinophils # Sodium 133 L BUN 29 H Creatinine 1.42 H Glucose 122 H POC Glucose (mg/dL) 135 H 186 H Total Protein 01/05/21 01/05/21 14:16 14:16 WBC RBC 3.46 L Hgb 11.5 L Hct 32.0 L MCH Immature Gran # Neutrophils # Monocytes # Eosinophils # Sodium 131 L BUN 34 H Creatinine 1.57 H Glucose 144 H POC Glucose (mg/dL) Total Protein 6.1 L Assessment and Plan Assessment: * Possible TIA manifesting with aphasia, versus altered mental status due to excessive narcotics for pain control. * Status post left knee arthroplasty * Hypertension * Hypothyroidism Plan: * Patient underwent MRI of the brain, which was unremarkable. No evidence of acute stroke. Mild to moderate diffuse cerebral atrophy and moderate to advanced chronic small vessel ischemic change redemonstrated. Cannot exclude underlying normal pressure hydrocephalus. Correlation with old CT or MRI would be beneficial. I reviewed MRI, there is definite generalized cortical atrophy. There is probably compensatory dilation of the lateral ventricles. NPH is less likely. I would suggest follow-up with neurologist as an outpatient, if patient continues to have problems with cognitive functions, or gait difficulties to exclude NPH. * Avoid excessive pain medication/opiates. * We will check 2-D echo and carotid Doppler to complete TIA workup. * Patient is nondiabetic, and lipids are well controlled. * Continue aspirin 81 mg and Lipitor 40 mg.
[2021-01-05] MEDS: SENNOSIDES-DOCUSATE SODIUM 1 EACH TAB PO SCH (20:06)
--- NOTE | 2021-01-05 20:40 | US ---
EXAMINATION TYPE: US carotid duplex BILAT DATE OF EXAM: 01/05/2021 COMPARISON: NONE CLINICAL HISTORY: Possible TIA. EXAM MEASUREMENTS: RIGHT: Peak Systolic Velocity (PSV) cm/sec ----- Right CCA: 74.3 ----- Right ICA: 110.6 ----- Right ECA: 248.4 ICA/CCA ratio: 1.5 RIGHT: End Diastole cm/sec ----- Right CCA: 11.4 ----- Right ICA: 21.1 ----- Right ECA: 14.7 LEFT: Peak Systolic Velocity (PSV) cm/sec ----- Left CCA: 89.2 ----- Left ICA: 140.8 ----- Left ECA: 202.9 ICA/CCA ratio: 1.6 LEFT: End Diastole cm/sec ----- Left CCA: 13.4 ----- Left ICA: 20.3 ----- Left ECA: 12.4 VERTEBRALS (direction of flow): Right Vertebral: Antegrade Left Vertebral: Antegrade Rhythm: Normal Bilateral intimal thickening, plaque bilateral bulb. IMPRESSION: Less than 50% stenosis of the left ICA. No significant stenosis of the right ICA. Elevated velocities of the bilateral ECAs. Criteria for Assigning % of Stenosis / Diameter reduction (Estimation based on the indirect measurements of the internal carotid artery velocities (ICA PSV). 1. Normal (no stenosis)=ICA PSV < 125 cm/s: ratio < 2.0: ICA EDV<40 cm/s. 2. Less than 50% stenosis=ICA PSV < 125 cm/s: ratio < 2.0: ICA EDV<40 cm/s. 3. 50 to 69% stenosis=ICA PSV of 125 to 230 cm/s: ration 2.0 ? 4.0: ICA EDV 40-100 cm/s. 4. Greater than 70% stenosis to near occlusion= ICA PSV > 230 cm/s: ratio > 4.0: ICA EDV > 100 cm/s. 5. Near occlusion= ICA PSV velocities may be low or undetectable: variable ratio and ICA EDV. 6. Total occlusion=unable to detect flow.
[2021-01-05 21:07] LABS: Glucose,Whole Blood 141 mg/dL (75-99)
[2021-01-05 22:34] VITALS: RESP 20
[2021-01-06 03:41] VITALS: PULSE 78
[2021-01-06] MEDS: LEVOTHYROXINE 75 MCG TAB PO SCH (05:54)
[2021-01-06 07:13] LABS: Glucose,Whole Blood 131 mg/dL (75-99)
[2021-01-06 07:55] VITALS: BP 178/67; TEMP 97.9
[2021-01-06] MEDS: INSULIN ASPART (NovoLOG) 100 UNIT/ML VIAL SQ SCH ×2 (08:08→11:58)
[2021-01-06] MEDS: ASPIRIN 81 MG PO SCH (08:09)
[2021-01-06] MEDS: MULTIVITAMINS, THERA 1 EACH TAB PO SCH (08:09)
[2021-01-06] MEDS: ASCORBIC ACID 500 MG TAB PO SCH (08:10)
[2021-01-06] MEDS: METOPROLOL TARTRATE 25 MG TAB PO SCH (08:10)
[2021-01-06] MEDS: THIAMINE 100 MG TAB PO SCH (08:10)
[2021-01-06] MEDS: amLODIPine 5 MG TAB PO SCH (08:10)
[2021-01-06] MEDS: ATORVASTATIN 40 MG TAB PO SCH (08:10)
[2021-01-06] MEDS: ZINC SULFATE 220 MG CAP PO SCH (08:10)
[2021-01-06] MEDS: CHOLECALCIFEROL 25 MCG (1000 IU) TABLET PO SCH (08:10)
[2021-01-06] MEDS: ISOSORBIDE MONONITRATE ER 30 MG TAB.ER.24H PO SCH (08:10)
[2021-01-06] MEDS: LACTATED RINGERS 1,000 ML IV SCH (08:16)
[2021-01-06 09:28] LABS: African American GFR (CKD) 47.1 (60.0-200.0); Anion Gap 6.9 mmol/L (4.00-12.00); BUN/Creat Ratio 19.38 Ratio (12.00-20.00); Calcium 9.4 mg/dL (8.7-10.3); Carbon Dioxide 25.1 mmol/L (21.6-31.8); Non-African American GFR(CKD) 40.7 (60.0-200.0); Potassium 4.9 mmol/L (3.5-5.5)
--- NOTE | 2021-01-06 10:43 | P.DS ---
Providers Date of admission: 01/05/21 14:44 Expected date of discharge: 01/06/21 Attending physician: Dk Briscoe Consults: 01/04/21 09:48 Consult Physician Routine Consulting Provider: Parag Szymanski Consult Reason/Comments: post op medical management Do you want consulting provider notified?: Yes 01/05/21 13:26 Consult Physician Urgent Consulting Provider: Andre Iglesias Consult Reason/Comments: code stroke Do you want consulting provider notified?: Yes Primary care physician: Isabella Cerda - Discharge Diagnosis(es) (1) Aphasia Current Visit: Yes Status: Acute (2) Osteoarthritis of left knee Current Visit: Yes Status: Acute (3) Status post total left knee replacement Current Visit: Yes Status: Acute Hospital Course: This is a 80-year-old male who was last seen with complaint of continued left knee pain. The patient has a known history of degenerative arthritis of the left knee and presents to discuss surgical options. After discussion and consideration the patient elects to proceed with total left knee arthroplasty. The patient is seen preoperatively by his primary care physician and cleared for surgery. The patient is admitted to [facility] for total left knee arthroplasty. The patient was sent to be discharged on 01/05/2021. However, he was found slightly unresponsive in his chair and "stroke was called. Further evaluation with neurology revealed no obvious signs of stroke. MRI of the brain was done which showed some chronic atrophy but no acute ischemic event noted. He is doing well postoperatively from an orthopedic standpoint. Vital signs are stable at discharge. Labs are stable at discharge. the patient is ambulating well with walker with minimal assistance. The patient is discharged to home on postop day #2 pending medical clearance. He is to refrain from any narcotic pain medication at this time. Please see orders and refer to the med rec for accurate list of medications. Patient Condition at Discharge: Good Plan - Discharge Summary Discharge Rx Participant: Yes New Discharge Prescriptions: New Aspirin [Adult Low Dose Aspirin EC] 81 mg PO BID #60 tablet. Docusate [Colace] 100 mg PO BID #60 capsule No Action Levothyroxine Sodium [Synthroid] 75 mcg PO DAILY Metoprolol Tartrate 25 mg PO QID amLODIPine [Norvasc] 5 mg PO DAILY Isosorbide Mononitrate [Isosorbide Mononitrate ER] 30 mg PO DAILY Cholecalciferol [Vitamin D3 (25 Mcg = 1000 Iu)] 25 mcg PO DAILY Ascorbic Acid [Vitamin C] 500 mg PO DAILY metFORMIN HCL ER [Glucophage Xr] 500 mg PO DAILY Atorvastatin [Lipitor] 40 mg PO DAILY Zinc 50 mg PO DAILY Thiamine [Vitamin B-1] 50 mg PO DAILY Garlic 1 each PO DAILY Febuxostat [Uloric] 40 mg PO DIRECTED PRN PRN Reason: gout Discharge Medication List Levothyroxine Sodium [Synthroid] 75 mcg PO DAILY 03/15/15 [History] Metoprolol Tartrate 25 mg PO QID 03/15/15 [History] Ascorbic Acid [Vitamin C] 500 mg PO DAILY 12/29/20 [History] Atorvastatin [Lipitor] 40 mg PO DAILY 12/29/20 [History] Cholecalciferol [Vitamin D3 (25 Mcg = 1000 Iu)] 25 mcg PO DAILY 12/29/20 [History] Febuxostat [Uloric] 40 mg PO DIRECTED PRN 12/29/20 [History] Garlic 1 each PO DAILY 12/29/20 [History] Isosorbide Mononitrate [Isosorbide Mononitrate ER] 30 mg PO DAILY 12/29/20 [History] Thiamine [Vitamin B-1] 50 mg PO DAILY 12/29/20 [History] Zinc 50 mg PO DAILY 12/29/20 [History] amLODIPine [Norvasc] 5 mg PO DAILY 12/29/20 [History] metFORMIN HCL ER [Glucophage Xr] 500 mg PO DAILY 12/29/20 [History] Aspirin [Adult Low Dose Aspirin EC] 81 mg PO BID #60 tablet. 01/05/21 [Rx] Docusate [Colace] 100 mg PO BID #60 capsule 01/05/21 [Rx] Follow up Appointment(s)/Referral(s): Isabella Cerda DO [Primary Care Provider] - 1 Week (Please call office for your appointment. ) [facility], [NON-STAFF] - Dk Briscoe MD [STAFF PHYSICIAN] - 01/15/21 1:15 pm Activity/Diet/Wound Care/Special Instructions: Weightbear as tolerated keep wound clean and dry take meds as directed. Take extra strength Tylenol as needed for pain. F/u with Dr. Briscoe in office Discharge Disposition: HOME WITH HOME HEALTH SERVICES
[2021-01-06 11:25] LABS: Glucose,Whole Blood 124 mg/dL (75-99)
--- NOTE | 2021-01-06 11:33 | P.PN ---
Subjective Progress Note Date: 01/06/21 Patient is a pleasant 82-year-old male was admitted for left knee arthroplasty sepsis underwent surgery was clinically doing well is about to be discharged although patient became less responsive and aspirin the nursing staff may have had a facial droop because of which course stroke was called. Patient underwent computed tomography scan of the head which was negative. Patient pupils were also constricted patient last received the pain medication is opiate was around the 8 AM and disease event happened around 3 and half hours later. Patient was apparently diaphoretic as well. Neurology was consulted. Patient's blood pressure was low before the event after which it went the up quite a bit. When evaluated the patient patient doesn't have any neuro deficits. 01/06/2021 Patient is seen this morning currently sitting up in the chair after just walking the halls and is having some left knee discomfort. Pain pump is noted and patient has been receiving Tylenol. Patient had a neurologic workup yesterday and underwent MRI showing no evidence of a recent infarct with mild to moderate diffuse cerebral atrophy and moderate to advanced chronic small vessel ischemic change. On exam no neurologic deficits noted. 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 Left Knee slightly more mobile status post recent left total knee arthroplasty. Dressing is dry and intact on the knee. Patient also underwent carotid Doppler study which showed no significant stenosis. Patient instructed to follow-up outpatient with neurologist. Patient also instructed to follow-up with primary care provider this week to discuss medications and hospitalization. Patient will be following up outpatient with orthopedic services as discussed and scheduled. Review of systems: Constitutional: No reports of fatigue, fever, or chills Cardiovascular: No reports of chest pain or palpitations Respiratory: No reports of shortness of breath or cough GI: No reports of nausea, vomiting, or diarrhea : No reports of dysuria or retention Neurovascular: No reports of weakness or numbness, reports mild left knee discomfort status post surgery All medications have been reviewed Objective - Vital Signs Vital signs: Vital Signs Temp 97.9 F 01/06/21 07:55 Pulse 78 01/06/21 07:55 Resp 20 01/06/21 07:55 BP 178/67 01/06/21 07:55 Pulse Ox 97 01/06/21 07:55 Intake & Output 01/05/21 01/06/21 01/06/21 18:59 06:59 18:59 Intake Total 100 Balance 100 Intake: Oral 100 Other: Voiding Method Toilet Toilet # Voids 1 - Exam GENERAL: The patient is alert and oriented x3, not in any acute distress. Well developed, well nourished. HEENT: Pupils are round and equally reacting to light. EOMI. No scleral icterus. No conjunctival pallor. Normocephalic, atraumatic. No pharyngeal erythema. No thyromegaly. CARDIOVASCULAR: S1 and S2 present. No murmurs, rubs, or gallops. PULMONARY: Chest is clear to auscultation, no wheezing or crackles. ABDOMEN: Soft, nontender, nondistended, normoactive bowel sounds. No palpable organomegaly. MUSCULOSKELETAL: No joint swelling or deformity. EXTREMITIES: No cyanosis, clubbing, or pedal edema. 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 No facial droop, no deviation able to follow finger with eyes, speech is clear SKIN: No rashes. - Labs CBC & Chem 7: 01/05/21 14:16 01/06/21 05:40 Labs: Abnormal Lab Results - Last 24 Hours (Table) 01/05/21 01/05/21 01/05/21 Range/Units 12:47 14:16 14:16 RBC 3.46 L (4.30-5.90) m/uL Hgb 11.5 L (13.0-17.5) gm/dL Hct 32.0 L (39.0-53.0) % Sodium 131 L (137-145) mmol/L BUN 34 H (9-20) mg/dL Creatinine 1.57 H (0.66-1.25) mg/dL Est GFR (CKD-EPI)AfAm (60.0-200.0) Est GFR (CKD-EPI)NonAf (60.0-200.0) Glucose 144 H (74-99) mg/dL POC Glucose (mg/dL) 186 H (75-99) mg/dL Total Protein 6.1 L (6.3-8.2) g/dL 01/05/21 01/05/21 01/06/21 Range/Units 17:59 20:55 05:40 RBC (4.30-5.90) m/uL Hgb (13.0-17.5) gm/dL Hct (39.0-53.0) % Sodium (137-145) mmol/L BUN 31.0 H (9-20) mg/dL Creatinine 1.6 H (0.66-1.25) mg/dL Est GFR (CKD-EPI)AfAm 47.1 L (60.0-200.0) Est GFR (CKD-EPI)NonAf 40.7 L (60.0-200.0) Glucose (74-99) mg/dL POC Glucose (mg/dL) 146 H 141 H (75-99) mg/dL Total Protein (6.3-8.2) g/dL 01/06/21 Range/Units 07:04 RBC (4.30-5.90) m/uL Hgb (13.0-17.5) gm/dL Hct (39.0-53.0) % Sodium (137-145) mmol/L BUN (9-20) mg/dL Creatinine (0.66-1.25) mg/dL Est GFR (CKD-EPI)AfAm (60.0-200.0) Est GFR (CKD-EPI)NonAf (60.0-200.0) Glucose (74-99) mg/dL POC Glucose (mg/dL) 131 H (75-99) mg/dL Total Protein (6.3-8.2) g/dL Assessment and Plan Assessment: -An episode of decreased responsiveness and possible facial droop on the left side: CT of the head did not show any significant abnormality cardiology evaluated the patient and underwent MRI which was negative for acute infarct along with carotid Doppler study which showed no significant stenosis. Either patient had a TIA or his episode is related to opiate analgesia as patient had significant pupillary constriction during the event. 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 Prescription provided for repeat labs to monitor kidney functions as creatinine is 1.6. Sodium is improved at 136. Patient instructed to continue using incentive spirometer at least 10 times every hour while awake and using Tylenol and/or Motrin for pain. Avoid narcotics as much as possible. Patient also instructed to follow-up with primary care provider upon discharge this week hopefully Friday or Friday. Patient is being discharged today and will be following up with orthopedics outpatient as discussed and scheduled.
--- NOTE | 2021-01-06 13:35 | ECHOF ---
Referral Reason:Possible TIA MEASUREMENTS -------- HEIGHT: 177.8 cm WEIGHT: 95.3 kg BP: 174/61 RVIDd: 3.7 cm (< 3.3) IVSd: 1.9 cm (0.6 - 1.1) LVIDd: 3.9 cm (3.9 - 5.3) LVPWd: 1.9 cm (0.6 - 1.1) IVSs: 2.7 cm LVIDs: 2.8 cm LVPWs: 2.0 cm %FS: 28 % LAESV Index (A-L): 20.20 ml/m IVSd: 1.6 cm (0.6 - 1.1) LVIDd: 5.7 cm (3.9 - 5.3) LVPWd: 1.8 cm (0.6 - 1.1) IVSs: 2.6 cm LVIDs: 4.1 cm LVPWs: 1.7 cm EDV(Teich): 160 ml ESV(Teich): 75 ml EF(Teich): 53 % %FS: 28 % SV(Teich): 86 ml Ao Diam: 3.9 cm (2.0 - 3.7) AV Cusp: 1.9 cm (1.5 - 2.6) MV EXCURSION: 15.857 mm (> 18.000) MV EF SLOPE: 38 mm/s (70 - 150) EPSS: 0.[address]: 0.63 m/s MV DecT: [address]: 1.08 m/s MV E/A Ratio: 0.59 AV maxP.09 mmHg AV meanP.85 mmHg AR PHT: 446 ms RAP: 5.00 mmHg RVSP: 15.17 mmHg FINDINGS -------- Sinus rhythm. This was a technically adequate study. The left ventricular size is normal. There is severe concentric left ventricular hypertrophy. Ove rall left ventricular systolic function is low-normal with, an EF between 50 - 55 %. The right ventricle is mildly enlarged. Normal LA size by volume 22+/-6 ml/m2. The right atrial size is normal. Interatrial and interventricular septum intact. There is mild aortic regurgitation. There is mild aortic stenosis present. Peak/mean gradient acr oss the Aortic Valve is 27.09mmHg / 16.85mmHg. Mild mitral annular calcification present. Mild mitral regurgitation is present. The tricuspid valve appears structurally normal. Mild tricuspid regurgitation present. Right vent ricular systolic pressure is normal at < 35 mmHg. The right ventricular systolic pressure, as measu red by Doppler, is 15.17mmHg. The pulmonic valve was not well visualized. There is no pulmonic regurgitation present. The aortic root size is normal. IVC Not well visulized. There is no pericardial effusion. CONCLUSIONS -------- 1. There is severe concentric left ventricular hypertrophy. 2. Overall left ventricular systolic function is low-normal with, an EF between 50 - 55 %. 3. The right ventricle is mildly enlarged. 4. Normal LA size by volume 22+/-6 ml/m2. 5. There is mild aortic regurgitation. 6. There is mild aortic stenosis present. 7. Peak/mean gradient across the Aortic Valve is 27.09mmHg / 16.85mmHg. 8. Mild mitral regurgitation is present. 9. Mild tricuspid regurgitation present. 10. There is no pericardial effusion. BOILERMAKER MECHANIC: Maryam Crawford RDCS
== END 2021-01-06 12:15 | disposition home health service (06) | DRG 982 ==
LOC: OR 07:46 → 4SSUR 11:40 → OR 01-05 14:44
PROVIDERS: ADMIT Orthopaedic Surgery Sports Medicine; ATTEND Orthopaedic Surgery Sports Medicine
PROC: 0SRD0J9 Replacement of Left Knee Joint with Synthetic Substitute, Cemented, Open Approach (ICD-10-PCS; principal; 2021-01-04 09:25)
DX: R47.01 Aphasia (principal); E87.1 Hypo-osmolality and hyponatremia; G45.9 Transient cerebral ischemic attack, unspecified; E11.22 Type 2 diabetes mellitus with diabetic chronic kidney disease; N18.30 Chronic kidney disease, stage 3 unspecified; M17.12 Unilateral primary osteoarthritis, left knee; E78.5 Hyperlipidemia, unspecified; I12.9 Hypertensive chronic kidney disease with stage 1 through stage 4 chronic kidney disease, or unspecified chronic kidney disease; M19.90 Unspecified osteoarthritis, unspecified site; M10.9 Gout, unspecified; E86.1 Hypovolemia; E03.9 Hypothyroidism, unspecified; T40.2X5A Adverse effect of other opioids, initial encounter; I25.2 Old myocardial infarction; Z79.890 Hormone replacement therapy; Z79.899 Other long term (current) drug therapy; Z79.84 Long term (current) use of oral hypoglycemic drugs; Z79.82 Long term (current) use of aspirin; Z96.651 Presence of right artificial knee joint; Z98.42 Cataract extraction status, left eye; Z98.41 Cataract extraction status, right eye; Z98.890 Other specified postprocedural states; Z87.891 Personal history of nicotine dependence; Z80.0 Family history of malignant neoplasm of digestive organs
CPT/HCPCS: 64448; 70450; 70551; 76942; 80048; 80053; 83036; 84484; 85025; 85610; 85730; 88300; 93306; 93880